=== PATIENT | male | born 1945 | race Caucasian/White ===

== ENCOUNTER 2019-06-09 10:15 | Outpatient (CLI) | payer MEDICARE, SELFPAY ==
[2019-06-09] VITALS (7 sets, daily range): BP systolic 119–135; BP diastolic 67–77; PULSE 67–85; RESP 16; TEMP 36.2; O2SAT 90–96
--- NOTE | 2019-06-09 10:18 | DI.RAD.S_ITS ---
PROCEDURE: PAIN L/S FACET INJ/BLK 1ST SWAPNA COMPARISON: None. INDICATIONS: SPONDYLOSIS FINDINGS: The digital acquisition imaging shows a sequence of 3 images targeted to the right and left and sequence showing the needle tip localization for L4, L5 and S1 medial branch block procedures bilaterally. IMPRESSION: Bilateral L4-S1 needle localization for subsequent branch block procedures bilaterally. Dictated by: Herb Loomis M.D. on 06/09/2019 at 12:54 Approved by: Herb Loomis M.D. on 06/09/2019 at 12:56
[2019-06-09] MEDS: fentaNYL 100 MCG/2 ML INJ 50 MCG IV (11:47)
[2019-06-09] MEDS: MIDAZOLAM 5 MG/5 ML VIAL IV (11:47)
--- NOTE | 2019-06-09 11:50 | PC.NURSE ---
Increased O2 related to low level.6LNC 93%. Pt alert w/ meds on board.
[2019-06-09] MEDS: BUPIVACAINE 0.5% (PF) VIAL 5 ML INJ (11:59)
[2019-06-09] MEDS: LIDOCAINE 1% 20 ML 10 ML INJ (11:59)
[2019-06-09] MEDS: IOPAMIDOL 15 ML VIAL 3 ML INJ (12:00)
[2019-06-09] MEDS: BETAMETHASONE 30 MG/5 ML MDV 12 MG INJ (12:00)
--- NOTE | 2019-06-09 12:04 | PC.NURSE ---
Pt tolerated procedure well. Pt able to get off the table with standby assist. Transferred pt via wheelchair to pre procedure room for continued monitoring with Niharika GRIFFITHS.
--- NOTE | 2019-06-09 12:06 | PM.PROC.1 ---
Procedures Date/Time Date of procedure: 06/09/19 Time of procedure: 12:06 General Procedure description: Procedure description: 1. FACET ARTHROPATHY PROCEDURES: 1. BILATERAL- L4, L5 and S1 MB BLOCKS PHYSICIAN: Lamberto Newell DO INDICATIONS Geovani is referred by for treatment of Bilateral Axial LBP. DESCRIPTION OF PROCEDURE Fluoroscopically guided, contrast-controlled bilateral L4, L5 and S1 medial branch blocks with 0.5cc of 0.5% Marcaine. Following review of allergy and review of potential side effects and complications, including, but not necessarily limited to, infection, allergic reaction, local tissue breakdown, nerve injury, paralysis, stroke and possible , the patient indicated that the patient understood and agreed to proceed. An informed consent document was signed by the patient, witnessed by a nurse, and placed in the patient's chart. After review of previous anaesthesic history and IV conscious sedation the patient was deemed safe to proceed with todays procedure with IV conscious sedation as ASA class II designation. Safety time-out was performed to confirm patient ID, procedure to be performed and site of procedure. IV sedation was accomplished with a combination of 2mg of Versed and 50mcg of Fentanyl was administered by the RN after DO order, titrated to patient comfort during the course of the procedure while the patient remained responsive to all verbal commands In the prone position, following sterile prep and drape of the lumbar region, the right L4, L5 and S1 anatomical location of the medial branch of the dorsal ramus was identified fluoroscopically. Subsequently an anesthetic skin wheal using 1% lidocaine solution was initiated at each of the anatomical spots. Subsequently then a 22-gauge 3.5-inch spinal needle was atraumatically introduced and advanced under fluoroscopic guidance at each of the corresponding sites at the right L4, L5 and S1 MB. After negative aspiration, 0.2 cc of Isovue 200 was injected, confirming placement without vascular or intrathecal uptake. Subsequently then 0.5 cc of 0.5% Marcaine solution was injected at each of the corresponding sites at the right L4, L5 and S1 medial branch locations. The identical procedure was replicated on the left. The patient tolerated the procedure well without signs or symptoms of complications prior to transfer to the recovery area continued monitoring without incident. Post-procedure, the patient was monitored initiating provocative activities to measure the amount of relief from block of the facetogenic pain. The patient reported a VAS of 7 prior to the procedure and a post-procedure VAS of 1. It has been a pleasure to assist in the diagnostic and therapeutic care of your patient. Total Fluoroscopy Time: 24.8 seconds Total Conscious Sedation Time: 24min POST OP INSTRUCTIONS The patient was provided with a Pain Log to complete over the next several hours and subsequent days prior to the patient's follow up with the ordering physician. If the patient has employee communications coordinator relief to the solution applied, then they may be a candidate for medial branch rhizotomy. The patient is aware, was provided, once again, with a Pain Log and will follow up with the referring physician for review and clinical correlation Lamberto Newell DO
--- NOTE | 2019-06-09 12:13 | PC.NURSE ---
ACCEPTED CARE OF PT IN POST PROC AREA IN STABLE CONDITION
== END 2019-06-09 12:35 | disposition home or self-care (01) ==
PROVIDERS: PCP Family Medicine; Visit Provider Physical Medicine & Rehabilitation
DX: M47.817 Spondylosis without myelopathy or radiculopathy, lumbosacral region (principal)
CPT/HCPCS: 64493; 64494; 99152; J0702; J2250; J3010

== ENCOUNTER 2019-09-20 11:09 | Outpatient (CLI) | payer MEDICARE, SELFPAY ==
[2019-09-20] VITALS (11 sets, daily range): BP systolic 111–189; BP diastolic 68–98; PULSE 77–105; RESP 16; O2SAT 94–96
--- NOTE | 2019-09-20 11:10 | DI.RAD.S_ITS ---
PROCEDURE: PAIN L/S MED/LAT N RFA BILAT INDICATIONS: SPONDYLOSIS FINDINGS: Fluoroscopic spot filming was performed to verify placement of spinal needles at the L4, L5 and S1 level(s), as labeled on the films. Appropriate location(s) of the needle tip(s) was confirmed by injection of iodinated contrast. IMPRESSION: Fluoroscopy for pain management. Dictated by: Carole Guthrie M.D. on 09/22/2019 at 8:50 Approved by: Carole Guthrie M.D. on 09/22/2019 at 8:50
[2019-09-20] MEDS: fentaNYL 100 MCG/2 ML INJ 50 MCG IV (12:06)
[2019-09-20] MEDS: MIDAZOLAM 5 MG/5 ML VIAL IV (12:20)
[2019-09-20] MEDS: methylPREDNISolone acetate 80 MG/ML VIAL INJ (12:24)
[2019-09-20] MEDS: BUPIVACAINE 0.5% (PF) VIAL 5 ML INJ (12:24)
[2019-09-20] MEDS: LIDOCAINE 1% 20 ML 10 ML INJ (12:24)
--- NOTE | 2019-09-20 12:42 | PC.NURSE ---
ASSISTING PT OFF TABLE AND TRANSPORTING TO POST PROC IN STABLE CONDITION. PASSING RN CARE OF PT TO MARIA M Madrid RN.
--- NOTE | 2019-09-20 12:50 | P.PCN_ITS ---
Procedures Date/Time Date of procedure: 09/20/19 Time of procedure: 12:50 General Procedure description: PREOP DIAGNOSIS 1. RECALCITRANT FACET ARTHROPATHY, POST OP DIAGNOSIS 1. RECALCITRANT FACET ARTHROPATHY PROCEDURES 1. BILATERAL L4 AND L5 MEDIAL BRANCH RADIOFREQUENCY NEUROTOMY AND S1 DORSAL RAMUS BRANCH RADIOFREQUENCY NEUROTOMY, PHYSICIAN: Lamberto Newell DO INDICATIONS: Geovani is referred by Dr. Clark for treatment of facet arthropathy. DESCRIPTION OF PROCEDURE Right L4 and L5 medial branch radiofrequency neurotomy and right S1 dorsal ramus radiofrequency neurotomy under fluoroscopy with conscious sedation. The patient is well known to this clinic having undergone previous facet injections with good but temporary relief. The patient has experienced appropriate, concordant relief with previous facet and median branch blocks but the patient's pain has been recalcitrant to further conservative measures. Therefore, based upon the patient's relief and persistent symptoms, the patient is considered an appropriate candidate for facet rhizotomy. All of the patient's questions regarding the risks versus benefits of the procedure, including, but not limited to, bleeding, infection, temporary as well as lasting nerve injury, paralysis, stroke, and , as well treatment alternatives were answered to satisfaction. After obtaining informed consent, denial of pertinent drug allergies, as well as being made aware of the potential risks of bleeding, infection, spinal cord trauma, paralysis, temporary and permanent nerve damage, seizure, stroke, and possible , the patient was brought to the fluoroscopy suite and positioned prone on the fluoroscopy table. The lumbar region was prepped with Betadine and covered with a fenestrated drape in the usual sterile fashion. Appropriate monitors applied including pulse oximeter, pulse, and blood pressure for regular monitoring throughout the procedure. After review of previous anaesthesic history and IV conscious sedation the patient was deemed safe to proceed with todays procedure with IV conscious sedation as ASA class II designation. Safety time-out was performed to confirm patient ID, procedure to be performed and site of procedure. IV sedation was accomplished with a combination of 5mg of Versed and 50mcg of Fentanyl administered by the RN after DO order, titrated to patient comfort during the course of the procedure while the patient remained responsive to all verbal commands. After local infiltration using 1% lidocaine, under fluoroscopic guidance, a 10- cm RF insulated needle with a 10-mm active tip was positioned parallel to the junction of the right sacral ala and the superior articulating process where the S1 dorsal ramus resides. Needle placement was confirmed with sensory stimulation at 50 Hz, with motor stimulation of .5v on the right which produced local stimulation without radicular component. The stimulation was then increased to 1.5v with, once again, only local multifidus stimulation without radicular component. This was then followed by two discreet lesions performed at 80 degrees Celsius for 90 seconds each. The needle was then removed and the identical procedure was performed along the length of the right L5 medial branch with motor stimulation at .7v on the right. The identical procedure was once again performed along the length of the right L4 medial branch with motor stimulation of .5v on the right. The identical procedure was repeated on the left. The patient tolerated the procedure well without signs or symptoms of complications prior to transfer to the recovery area continued monitoring without incident. The patient was then transferred to the recovery area where they were observed for an appropriate period of time after the injection. The patient reported a VAS score of 9 prior to the procedure and a post-procedure VAS of 0. Total Fluoroscopy Time: 22.7 seconds Total Conscious Sedation Time: 34min POST OP INSTRUCTIONS The patient was provided a Pain Log to continue to record the patient's response to the target-specific procedure prior to the patient's follow-up visit with the referring physician. Additionally, specific post-injection care instructions and a contact number to our office were provided if concerns arise regarding possible complications associated with the procedure are suspected. Lamberto Newell DO Complications: none
--- NOTE | 2019-09-20 13:06 | PC.NURSE ---
Post procedure note: Patient arrived for post procedure monitoring. Received handoff report from Marian Stewart RN. Patient able to transfer from wheelchair to recliner independently. Pain level 1/10. Discharge instructions given and explained to patient and with good understanding. Stable for discharge to home. w/c to car with .
== END 2019-09-20 12:05 | disposition home or self-care (01) ==
PROVIDERS: Family Provider Family Medicine; PCP Family Medicine; Visit Provider Physical Medicine & Rehabilitation
DX: M47.817 Spondylosis without myelopathy or radiculopathy, lumbosacral region (principal); M47.816 Spondylosis without myelopathy or radiculopathy, lumbar region
CPT/HCPCS: 64635; 64636; 99152; 99153; J1040; J2250; J3010

== ENCOUNTER → 2020-12-03 07:40 | Outpatient (CLI) | payer MEDICARE, SELFPAY ==
--- NOTE | 2020-12-03 07:42 | DI.RAD.S_ITS ---
PROCEDURE: XR LUMBAR SPINE MIN 4V INDICATIONS: SPONDYLOSIS TECHNIQUE: 5 views of the lumbar spine were acquired, including bilateral oblique views. COMPARISON: None. FINDINGS: Bones: 5 nonrib-bearing vertebrae are present. There is normal bony alignment. No vertebral body compression fractures. No suspicious bony lesions. There is a mild degree of degenerative disc disease comprised of disc height reduction without significant subluxation. This is best seen at L1-2, L2-3, and L4-5. Note is made of facet osteoarthritis that is mild at L3-4, moderate at L4-5 and moderately severe at L5-S1. Soft tissues: Overlying bowel gas pattern is normal. No suspicious soft tissue calcifications. Oblique images: No pars defects. IMPRESSION: [id number] degenerative changes along the lumbosacral spine overall, most pronounced at the lower 2 segments of the LS spine where both spinal and foraminal stenosis would be suspected. 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 Dictated by: Herb Loomis M.D. on 12/03/2020 at 9:03 Approved by: Herb Loomis M.D. on 12/03/2020 at 9:04
== END ==
PROVIDERS: Family Provider Family Medicine; PCP Family Medicine; Referring Provider Physical Medicine & Rehabilitation; Visit Provider Physical Medicine & Rehabilitation
DX: M47.26 Other spondylosis with radiculopathy, lumbar region (principal); M47.27 Other spondylosis with radiculopathy, lumbosacral region; M53.3 Sacrococcygeal disorders, not elsewhere classified; M41.26 Other idiopathic scoliosis, lumbar region
CPT/HCPCS: 72110; 99214

== ENCOUNTER → 2021-02-08 07:12 | Outpatient (CLI) | payer MEDICARE, SELFPAY ==
[2021-02-11 14:06] LABS: COVID19 -Nasal RAPID Negative (Negative)
== END ==
PROVIDERS: Family Provider Family Medicine; PCP Family Medicine; Visit Provider Physical Medicine & Rehabilitation
DX: Z20.822 Contact with and (suspected) exposure to COVID-19 (principal)
CPT/HCPCS: 87635

== ENCOUNTER 2021-02-12 09:50 | Outpatient (CLI) | payer MEDICARE, SELFPAY ==
[2021-02-12] VITALS (8 sets, daily range): BP systolic 120–163; BP diastolic 58–79; PULSE 69–96; RESP 14–21; TEMP 36.5; O2SAT 91–94
--- NOTE | 2021-02-12 09:53 | DI.RAD.S_ITS ---
PROCEDURE: PAIN L/S TRANSFORAMINAL INJECT INDICATIONS: SPONDYLOSIS COMPARISON: [facility], , PAIN L/S MED/LAT N RFA BILAT, 09/20/2019, 12:06. FINDINGS: Fluoroscopic spot filming was performed to verify placement of a spinal needle at the L4-L5 level, as labeled on the films. Appropriate location of the needle tip was confirmed by injection of iodinated contrast. IMPRESSION: Intraprocedural examination within normal limits. Dictated by: Dav Storey M.D. on 02/12/2021 at 11:16 Approved by: Dav Storey M.D. on 02/12/2021 at 11:17
[2021-02-12] MEDS: MIDAZOLAM 5 MG/5 ML VIAL IV (10:45)
[2021-02-12] MEDS: fentaNYL 100 MCG/2 ML INJ 50 MCG IV (10:45)
[2021-02-12] MEDS: BUPIVACAINE 0.25% (PF) VIAL 2 ML INJ (10:52)
[2021-02-12] MEDS: BETAMETHASONE 30 MG/5 ML MDV 6 MG INJ (10:53)
[2021-02-12] MEDS: IOPAMIDOL 15 ML VIAL 3 ML INJ (10:53)
[2021-02-12] MEDS: DEXAMETHASONE 10 MG/ML VIAL 20 MG INJ (10:53)
--- NOTE | 2021-02-12 10:59 | P.PCN_ITS ---
Date/Time/Diagnoses Date of procedure: 02/12/21 Time of procedure: 10:59 Pre-procedure diagnosis: 1. FORAMINAL STENOSIS WITH LE SYMPTOMS Post-procedure diagnosis: same Procedure Notes Procedure: 1. FLUOROSCOPICALLY GUIDED CONTRAST CONTROLLED TRANSFORAMINAL EPIDURAL STEROID INJECTION - LEFT L4/5 Indications: Geovani is referred by Dr. Clark for treatment of Foraminal Stenosis with Left LE Symptoms Physician: Lamberto Newell Total Fluoroscopy time (seconds): 10 Total sedation minutes: 12 Complications: none Procedure in detail & Post-procedure care: FINDINGS Foraminal Nerve Root Compression secondary to disc disease and facet hypertrophy DESCRIPTION OF PROCEDURE Following review of allergy and review of potential side effects and complications, including, but not necessarily limited to, infection, allergic reaction, local tissue breakdown, stroke, temporary or permanent nerve injury, paralysis, and possible , the patient indicated that the patient understood and agreed to proceed. An informed consent document was signed by the patient, witnessed by a nurse, and placed in the patient's chart. Additionally, other treatment options including medications, modalities, and physical therapy were reviewed with the patient. After review of previous anaesthesic history and IV conscious sedation the patient was deemed safe to proceed with today?s procedure with IV conscious sedation as ASA class II designation. Safety time-out was performed to confirm patient ID, procedure to be performed and site of procedure. IV sedation was accomplished with a combination of 3mg of Versed and 50mcg of Fentanyl administered by the RN after DO order, titrated to patient comfort during the course of the procedure while the patient remained responsive to all verbal commands In the prone position following sterile prep and drape of the lumbar region, the left L4/5 posterior neuroforamen was identified fluoroscopically. The skin was anesthetized via a 25-gauge 1.5-inch needle with 1% lidocaine solution. At this point, a 25-gauge 3.5-inch spinal needle was atraumatically introduced and advanced under fluoroscopic guidance through the posterior left L4/5 neuroforame n to approximately the anterior aspect of the canal. Depth was confirmed on lateral view. Following negative aspiration, injection of approximately 1.5 cc of Isovue 200 under live fluoroscopy in the AP view confirmed excellent flow along the nerve root, into the epidural space without vascular or intrathecal uptake observed Radiological data, including multiple fluoroscopic views of the lumbosacral spine, reveal a spinal needle at the left L4/5 posterior neuroforamen. Subsequent views show flow of contrast material flowing superiorly and inferiorly along the nerve root confirming epidural flow. Subsequently, a test dose of 1.5 cc of 1% lidocaine solution was administered and patient was observed for two minutes for signs or symptoms of complications, including abdominal pain, shortness of breath, bilateral upper or lower extremity weakness, nausea and vomiting, prior to steroid injection. At this point, a total of 3cc or 20mg of dexamethasone and 6mg of betamethasone was inje cted without incident. The procedure tolerated the procedure well without signs or symptoms of complications prior to transfer to the recovery area continued monitoring without incident. The patient was then transferred to the recovery area where they were observed for an appropriate time after the injection. The patient reported a VAS score of 7 prior to the procedure and a post-procedure VAS of 0. POST OP INSTRUCTIONS The patient was provided a Pain Log to continue to record their response to the target-specific procedure prior to follow-up visit with their referring physician. Additionally, specific post-injection care instructions and a contact number to our office were provided if concerns arise regarding possible complications associated with the procedure are suspected.
== END 2021-02-12 11:20 | disposition home or self-care (01) ==
LOC: RAD 09:52
PROVIDERS: Family Provider Family Medicine; PCP Family Medicine; Referring Provider Physical Medicine & Rehabilitation; Visit Provider Physical Medicine & Rehabilitation
DX: M54.16 Radiculopathy, lumbar region (principal); M47.816 Spondylosis without myelopathy or radiculopathy, lumbar region
CPT/HCPCS: 64483; 99152; J0702; J1100; J2250; J3010

== ENCOUNTER 2022-10-02 09:12 | Outpatient (CLI) | payer MEDICARE, SELFPAY ==
[2022-10-02] VITALS (9 sets, daily range): BP systolic 117–214; BP diastolic 62–100; PULSE 78–98; RESP 12–18; TEMP 36.5; O2SAT 94–98
--- NOTE | 2022-10-02 09:13 | DI.RAD.S_ITS ---
PROCEDURE: PAIN L/S TRANSFORAMINAL INJECT INDICATIONS: SPONDYLOSIS COMPARISON: [facility], , PAIN L/S TRANSFORAMINAL INJECT, 02/12/2021, 10:52. FINDINGS: Fluoroscopic spot filming was performed to verify placement of spinal needles at the right L4-5 level(s), as labeled on the films. Appropriate location(s) of the needle tip(s) was confirmed by injection of iodinated contrast. IMPRESSION: Fluoroscopic guidance Approved by: Leonardo Rodriguez M.D. on 10/02/2022 at 18:44
[2022-10-02] MEDS: MIDAZOLAM 2 MG/2 ML VIAL 4 MG IV (10:26)
[2022-10-02] MEDS: BETAMETHASONE 30 MG/5 ML MDV 6 MG INJ (10:30)
[2022-10-02] MEDS: IOPAMIDOL 15 ML VIAL 3 ML INJ (10:30)
[2022-10-02] MEDS: BUPIVACAINE 0.25% (PF) VIAL 2 ML INJ (10:30)
[2022-10-02] MEDS: DEXAMETHASONE 10 MG/ML VIAL 20 MG INJ (10:31)
--- NOTE | 2022-10-02 10:39 | P.PCN_ITS ---
Date/Time/Diagnoses Date of procedure: 10/02/22 Time of procedure: 10:39 Pre-procedure diagnosis: 1. FORAMINAL STENOSIS WITH LE SYMPTOMS Post-procedure diagnosis: same Procedure Notes Procedure: 1. FLUOROSCOPICALLY GUIDED CONTRAST CONTROLLED TRANSFORAMINAL EPIDURAL STEROID INJECTION - RIGHT L4/5 TFESI Indications: Geovani is referred by EZEQUIEL Parikh for treatment of Foraminal Stenosis with Right LE Symptoms Physician: Lamberto Newell Total Fluoroscopy time (seconds): 9 Total sedation minutes: 12 Complications: none Procedure in detail & Post-procedure care: FINDINGS Foraminal Nerve Root Compression secondary to disc disease and facet hypertrophy DESCRIPTION OF PROCEDURE Following review of allergy and review of potential side effects and complications, including, but not necessarily limited to, infection, allergic reaction, local tissue breakdown, stroke, temporary or permanent nerve injury, paralysis, and possible , the patient indicated that the patient understood and agreed to proceed. An informed consent document was signed by the patient, witnessed by a nurse, and placed in the patient's chart. Additionally, other treatment options including medications, modalities, and physical therapy were reviewed with the patient. After review of previous anaesthesic history and IV conscious sedation the patient was deemed safe to proceed with today?s procedure with IV conscious sedation as ASA class II designation. Safety time-out was performed to confirm patient ID, procedure to be performed and site of procedure. IV sedation was accomplished with a combination of 4mg of Versed was administered by the RN after DO order, titrated to patient comfort during the course of the procedure while the patient remained responsive to all verbal commands In the prone position following sterile prep and drape of the lumbar region, the right L4/5 posterior neuroforamen was identified fluoroscopically. The skin was anesthetized via a 25-gauge 1.5-inch needle with 1% lidocaine solution. At this point, a 25-gauge 3.5-inch spinal needle was atraumatically introduced and advanced under fluoroscopic guidance through the posterior right L4/5 neuroforamen to approximately the anterior aspect of the canal. Depth was confirmed on lateral view. Following negative aspiration, injection of approximately 1.5cc of Isovue 200 under live fluoroscopy in the AP view confirmed excellent flow along the nerve root, into the epidural space without vascular or intrathecal uptake observed Radiological data, including multiple fluoroscopic views of the lumbosacral sp ine, reveal a spinal needle at the right L4/5 posterior neuroforamen. Subsequent views show flow of contrast material flowing superiorly and inferiorly along the nerve root confirming epidural flow. Subsequently, a test dose of 1.5 cc of 1% lidocaine solution was administered and patient was observed for two minutes for signs or symptoms of complications, including abdominal pain, shortness of breath, bilateral upper or lower extremity weakness, nausea and vomiting, prior to steroid injection. At this point, a total of 3cc or 20mg of dexamethasone and 6mg of betamethasone was injected without incident. The procedure tolerated the procedure well without signs or symptoms of complications prior to transfer to the recovery area continued monitoring without incident. The patient was then transferred to the recovery area where they were observed for an appropriate time after the injection. The patient reported a VAS score of 7 prior to the procedure and a post- procedure VAS of 0. POST OP INSTRUCTIONS The patient was provided a Pain Log to continue to record their response to the target-specific procedure prior to follow-up visit with their referring physician. Additionally, specific post-injection care instructions and a contact number to our office were provided if concerns arise regarding possible complications associated with the procedure are suspected.
== END 2022-10-02 11:05 | disposition home or self-care (01) ==
PROVIDERS: Family Provider Family Medicine; PCP Physician Assistant; Referring Provider Physical Medicine & Rehabilitation; Visit Provider Physical Medicine & Rehabilitation
DX: M48.061 Spinal stenosis, lumbar region without neurogenic claudication (principal); M51.16 Intervertebral disc disorders with radiculopathy, lumbar region
CPT/HCPCS: 64483; 99152; J0702; J1100; J2250; J3490

== ENCOUNTER → 2024-12-28 13:35 | Outpatient (CLI) | payer MEDICARE, SELFPAY ==
--- NOTE | 2024-12-28 13:37 | DI.RAD.S_ITS ---
PROCEDURE: XR LUMBAR SPINE MIN 4V INDICATIONS: BACK PAIN TECHNIQUE: 5 views of the lumbar spine were acquired, including bilateral oblique views. COMPARISON: [facility], CR, XR LUMBAR SPINE MIN 4V, 12/03/2020, 8:06. FINDINGS: Diffuse osseous demineralization. Five non rib-bearing lumbar vertebrae are present. Age-indeterminate superior endplate compression fractures of the T12-L1, and L2 vertebral bodies with 10-20 percent height loss. Otherwise, the vertebral body heights are preserved. Lumbar lordosis is preserved. Intervertebral disc height loss at L4-L5 and L5-S1. Multilevel hypertrophy of the spinous processes. Multilevel moderate-severe facet arthropathy, most conspicuous at L4-L5 and L5-S1. Moderate foraminal narrowing at the bilateral L4-L5 and L5-S1 levels. Aortic vascular calcifications. IMPRESSION: 1. Age-indeterminate superior endplate T12-L2 compression fractures with 10-20 percent height loss. 2. Multilevel moderate-severe facet arthropathy with hypertrophy of the spinous processes, which can be seen with Baastrup's disease. Dictated by: Mihir Glez M.D. on 12/28/2024 at 14:30 Approved by: Mihir Glez M.D. on 12/28/2024 at 14:33
--- NOTE | 2024-12-28 13:37 | DI.RAD.S_ITS ---
PROCEDURE: XR HIP W PEL IF DONE SWAPNA MIN 4V INDICATIONS: LEFT HIP PAIN TECHNIQUE: AP pelvis with lateral view(s) of the bilateral hip(s). COMPARISON: None. FINDINGS: No acute fracture or dislocation. The hip joints are preserved. Mild bilateral sacroiliac osteoarthritis. Chondrocalcinosis at the pubic symphysis. Small right acetabular paralabral calcification. IMPRESSION: 1. No acute radiographic abnormality of the hips. 2. Mild bilateral sacroiliac osteoarthritis. Dictated by: Mihir Glez M.D. on 12/28/2024 at 14:28 Approved by: Mihir Glez M.D. on 12/28/2024 at 14:29
== END ==
PROVIDERS: Family Provider Family Medicine; Referring Provider Physical Medicine & Rehabilitation; Visit Provider Physical Medicine & Rehabilitation
DX: M47.26 Other spondylosis with radiculopathy, lumbar region (principal); M47.27 Other spondylosis with radiculopathy, lumbosacral region; M48.55XA Collapsed vertebra, not elsewhere classified, thoracolumbar region, initial encounter for fracture; I70.0 Atherosclerosis of aorta; M25.552 Pain in left hip
CPT/HCPCS: 72110; 73522

== ENCOUNTER → 2024-12-30 16:53 | Outpatient (CLI) | payer MEDICARE, SELFPAY ==
--- NOTE | 2024-12-30 16:54 | DI.MRI.S_ITS ---
P the ROCEDURE: MR LUMBAR SPINE WO CON INDICATIONS: T12, L1 and L2 Fx TECHNIQUE: Noncontrast sagittal T1 spin echo and T2 fast echo, sagittal STIR, and T2 fast spin echo through the lumbar spine. In cases with scoliosis, additional coronal T2 fast spin echo may be performed. COMPARISON: [facility], CR, XR LUMBAR SPINE MIN 4V, 12/28/2024, 13:42. Outside Facility, RG, MRI L-SPINE W/O CONTRAST, 12/29/2020, 15:08. FINDINGS: Image quality: Excellent. Alignment and Curvature: Trace retrolisthesis of L1 on L2. Trace anterolisthesis of L4 on L5. Bone Marrow: Marrow is of normal overall signal. No acute vertebral body compression fractures. Spinal Cord: Conus medullaris terminates at the L1-L2 level. Visualized cord demonstrates normal signal and size. Paraspinous Soft Tissues: No paravertebral masses. T12-L1: No canal stenosis or foraminal stenosis. L1-L2: Chronic disc height loss. Trace retrolisthesis. Disc bulge. Facet and ligament hypertrophy. Mild canal stenosis. Findings is slightly progressed. Moderate bilateral foraminal narrowing with bilateral flattening deformity on the exiting L1 nerve roots. L2-L3: Progressive findings. Progression of canal stenosis can be seen by comparing the sagittal images 10 of series 2 of the current study and 8 of series 3 of the previous study. There is disc bulge and facet and ligament hypertrophy. There is moderate to severe canal stenosis. There is [id number] right foraminal narrowing and moderate left foraminal narrowing with a degree of left foraminal L2 nerve root impingement. L3-L4: Progressive findings. Disc bulge. Facet and ligament hypertrophy. Moderate canal stenosis. [id number] bilateral foraminal stenosis. L4-L5: Remote prior ri left hemilaminectomy. Disc bulge. Prominent facet and ligament hypertrophy. Again noted is moderate central canal stenosis. Progression of right-sided ligamentous hypertrophy resulting in severe right lateral recess stenosis. This impinges on the right L5 nerve root in the right lateral recess. There is moderate right foraminal narrowing and mild to moderate left foraminal narrowing. L5-S1: Similar findings. Disc bulge. Facet hypertrophy. Mild canal stenosis. Mild bilateral foraminal stenosis. IMPRESSION: 1. Remote left hemilaminectomy at L4-L5. 2. Progressive findings at L1-L2 through L4-L5. 3. Underlying multilevel facet arthropathy. 4. Canal stenosis is mild at L1-L2, moderate to severe at L2-L3, moderate at L3-L4, and moderate at L4-L5. 5. There is also severe right lateral recess stenosis at L4-L5. 6. Multilevel foraminal narrowing as described above. Dictated by: Tremaine Patel M.D. on 01/02/2025 at 9:13 Approved by: Tremaine Patel M.D. on 01/02/2025 at 9:36
== END ==
PROVIDERS: Family Provider Family Medicine; PCP Physician Assistant; Referring Provider Physical Medicine & Rehabilitation; Visit Provider Physical Medicine & Rehabilitation
DX: S32.020A Wedge compression fracture of second lumbar vertebra, initial encounter for closed fracture (principal); S22.080A Wedge compression fracture of T11-T12 vertebra, initial encounter for closed fracture; S32.019A Unspecified fracture of first lumbar vertebra, initial encounter for closed fracture; M48.061 Spinal stenosis, lumbar region without neurogenic claudication; M48.07 Spinal stenosis, lumbosacral region; M47.816 Spondylosis without myelopathy or radiculopathy, lumbar region; M47.817 Spondylosis without myelopathy or radiculopathy, lumbosacral region; X58.XXXA Exposure to other specified factors, initial encounter; Z98.890 Other specified postprocedural states
CPT/HCPCS: 72148